=== PATIENT | female | born 1960 | race Caucasian/White ===

== ENCOUNTER 2018-10-21 15:33 | Emergency (ER) | payer OTHER ==
[2018-10-21 15:44] VITALS: BP 139/69
--- NOTE | 2018-10-21 16:22 | UC ---
Throat Pain/Nasal Vince HPI - HPI Summary HPI Summary: 58-year-old woman here with a chief complaint of runny nose sore throat sinus congestion and pain. She's been sick for 10 days although she was sick prior to that also. She is a smoker. Her rhinorrhea is yellow and green. She does have some sore throat and nausea. She used decongestants would help for a while but then things got worse. - History of Current Complaint Chief Complaint: UCRespiratory Stated Complaint: SORE THROAT, AND STOMACHE ACHE Time Seen by Provider: 10/21/18 16:12 Pain Intensity: 2 - Allergies/Home Medications Allergies/Adverse Reactions: Allergies Allergy/AdvReac Type Severity Reaction Status Date / Time morphine Allergy Hives Verified 10/21/18 15:44 Home Medications: Home Medications Multivitamin [Multivitamins] 1 cap PO 10/21/18 [History] guaiFENesin [Mucinex] 10/21/18 [History] PMH/Surg Hx/FS Hx/Imm Hx Previously Healthy: Yes - Surgical History Surgical History: Yes Surgery Procedure, Year, and Place: hysterectomy, anterior repair X2. - Family History Known Family History: Positive: Non-Contributory - Social History Alcohol Use: Daily Substance Use Type: None Smoking Status (MU): Heavy Every Day Tobacco Smoker Type: Cigarettes Review of Systems All Other Systems Reviewed And Are Negative: Yes Constitutional: Positive: Negative Skin: Positive: Negative Eyes: Positive: Negative ENT: Positive: Sore Throat, Nasal Discharge, Sinus Congestion, Sinus Pain/ Tenderness Respiratory: Positive: Negative Cardiovascular: Positive: Negative Gastrointestinal: Positive: Negative Motor: Positive: Negative Neurovascular: Positive: Negative Musculoskeletal: Positive: Negative Neurological: Positive: Negative Psychological: Positive: Negative Is Patient Immunocompromised?: No Physical Exam Triage Information Reviewed: Yes Appearance: No Pain Distress, Well-Nourished, Ill-Appearing - MILD Vital Signs: Initial Vital Signs Temp 98.1 F 10/21/18 15:40 Pulse 81 10/21/18 15:40 Resp 18 10/21/18 15:40 BP 139/69 10/21/18 15:40 Pulse Ox 99 10/21/18 15:40 Vital Signs Reviewed: Yes Eye Exam: Normal Eyes: Positive: Conjunctiva Clear ENT: Positive: Pharyngeal erythema, Nasal congestion, Nasal drainage, TMs normal Neck exam: Normal Neck: Positive: Supple Respiratory: Positive: Lungs clear, Normal breath sounds, No respiratory distress Cardiovascular: Positive: RRR Musculoskeletal Exam: Normal Musculoskeletal: Positive: Strength Intact, ROM Intact Neurological Exam: Normal Neurological: Positive: Alert, Muscle Tone Normal Psychological Exam: Normal Psychological: Positive: Normal Response To Family, Age Appropriate Behavior Skin Exam: Normal Throat Pain/Nasal Course/Dx - Differential Dx/Diagnosis Provider Diagnoses: SINUSITIS Discharge - Sign-Out/Discharge Documenting (check all that apply): Patient Departure All imaging exams completed and their final reports reviewed: No Studies - Discharge Plan Condition: Stable Disposition: HOME Prescriptions: Amoxicillin/Clavulanate TAB* [Augmentin TAB 875*] 875 mg PO BID #20 tab Patient Education Materials: Sinusitis (ED) Referrals: [facility] [Outside] Additional Instructions: FOLLOW UP WITH YOUR DOCTOR IF NOT COMPLETELY IMPROVED. GET RECHECKED FOR ANY WORSENING OF YOUR CONDITION OR QUESTIONS OR CONCERNS. - Billing Disposition and Condition Condition: STABLE Disposition: Home
== END 2018-10-21 16:30 | disposition home or self-care (01) ==
LOC: UCEAST 15:33
DX: J32.9 Chronic sinusitis, unspecified (principal); F17.210 Nicotine dependence, cigarettes, uncomplicated; R10.9 Unspecified abdominal pain; Z88.5 Allergy status to narcotic agent
CPT/HCPCS: 99202; G0463